=== PATIENT | female | born 1950 | race Caucasian/White ===

== ENCOUNTER → 2016-10-20 | Day surgery (SDC) | payer OTHER, BC ==
[2016-10-13 15:34] VITALS: Ht 167.6 cm; Wt 88.6 kg
[~2016-10-20] VITALS: Ht 167.6 cm; Wt 88.6 kg
[~2016-10-20] MED LIST: ASPI81TA28 PO; ATROPINE SULFATE 0.1 MG/ML 5ML SYR IV PRN; BIOT1CAP8 PO; BUPIVACAINE/EPINEPHRINE 0.25% 1:200,000 30 ML VIAL ONE; CEFAZOLIN 2000 MG/60 ML D5W IV SCH; CHOL1000 PO; DEXAMETHASONE SOD INJ 4 MG/ML VIAL ONE; EpHEDrine SULFATE INJ 50 MG/ML AMP IV PRN; EpINEphrine INJ 1MG/ML AMP 1 MG/ML AMP ONE; FENTANYL CITRATE INJ 50 MCG/1 ML 2 ML VIAL IV PRN; FENTANYL CITRATE INJ 50 MCG/1 ML 2 ML VIAL ONE; FLUMAZENIL 0.1 MG/1 ML 10 ML VIAL IV PRN; HYDR2TAB2 PO; HYDROmorphone INJ 1 MG/ML SYR ONE; HYDROmorphone INJ 2 MG/ML SYR/VIAL IV PRN; KETO10TA PO; KETOROLAC TROMETHAMINE 15 MG/ML VIAL IV. PRN; KETOROLAC TROMETHAMINE 30 MG/ML VIAL ONE; LABETALOL HCL IV 5 MG/ML 20ML IV PRN; LACTATED RINGER'S 1000ML 1,000 ML IV SCH; LIDOCAINE HCL 1% MPF 2 ML VIAL ONE; LIDOCAINE HCL 2% 2 ML VIAL (20MG/ML) ONE; LOSA50TA6 PO; LOTE0.5S OPB; MELO7.5T5 PO; MIDAZOLAM HCL 1 MG/ML 2ML VIAL ONE; MULT-506 PO; NALOXONE HCL 0.4 MG/1 ML VIAL/CARP IV PRN; OMEP20TA PO; ONDANSETRON INJ 2 MG/ML 2 ML VIAL IV PRN; ONDANSETRON INJ 2 MG/ML 2 ML VIAL ONE; OXYC-57 PO; OXYCODONE/ACETAMINOPHEN 5-325 TAB PO PRN; PROMETHAZINE HCL INJ 12.5 MG in SODIUM CHLORIDE 0.9% 50ML 50 ML IV PRN; PROPOFOL IV EMULSION 10 MG/ML 20 ML VIAL IV ONE; ROPIVACAINE 0.5% 5 MG/ML 30 ML VIAL ONE; SODIUM CHLORIDE 0.9% 1000ML 1,000 ML IV SCH; SODIUM CHLORIDE 0.9% INJ 10 ML VIAL ONE; SUCCINYLCHOLINE CHLORIDE 20 MG/ML 10 ML VIAL IV ONE
--- NOTE | 2016-10-20 10:20 | History & Physical Bridge - [place] ---
H&P Re-Evaluation Bridge Note: I have examined the patient, reviewed the History & Physical and in the interval since the performance of the History & Physical I have noted the following changes of clinical significance: No changes noted
--- NOTE | 2016-10-20 11:37 | OPERATIVE REPORT ---
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 POSTOPERATIVE DIAGNOSIS: Same. PROCEDURES: Right shoulder diagnostic arthroscopy with limited debridement, acromioplasty, distal clavicle resection and biceps tenotomy. SURGEON: Dr. Danny Howe. COUTIERIER: Christopher Banks PA-C, whose assistance was necessary for positioning the arm and helping with instrumentation. ANESTHESIA: General with a right interscalene nerve block. COMPLICATIONS: None. CONDITION: Stable to PACU. INDICATIONS: Marycruz is a very pleasant 66-year-old female who presented to my office with chronic right shoulder pain. MRI and clinical examination were diagnostic for severe external impingement and AC joint arthritis. After failing conservative treatment, she elected to undergo arthroscopy. On 10/20/2016 she arrived at [facility] for the above procedure. She was seen in the preoperative holding area and the operative extremity was identified and signed. She was given a preoperative antibiotic and a right interscalene nerve block. She was taken back to the operating room, laid on the table in supine position and put under general anesthesia. She was then put into the beachchair position. The right shoulder was prepped and draped in a sterile fashion. Time-out was done and the patient and operative extremity was properly identified. A scope was introduced in the posterior portal. Diagnostic arthroscopy showed grade 2 and 3 chondral changes throughout the humeral head and grade 1 chondral changes throughout the glenoid. The biceps tendon was right on the dorsal aspect. The supraspinatus, infraspinatus, teres minor and subscapularis were checked and intact. There was some fraying of the anterior labrum. An anterior portal was made. A shaver was used to do a limited debridement of the intraarticular structures and the biceps tendon was arthroscopically tenotomized. The scope was then put into the subacromial space. A lateral portal was made. A shaver was used to do a complete subacromial and subdeltoid bursectomy. The bursal side of the rotator cuff was examined extensively without evidence of tear. A cautery was then used to tease the coracoacromial ligament off the undersurface of the acromion and a 5-0 mrak was used to complete an acromioplasty of a Bigliani type 3 acromion. A shaver was used to remove any excess debris. The bursal side of the rotator cuff was examined again without evidence of tear. Attention was turned to the distal clavicle. Through an anterior portal, a shaver and ablator were used to skeletonize the distal clavicle. A 5-0 mark was then used to resect the distal 7 mm from the clavicle. Complete resection was checked under direct visualization. Multiple pictures were taken. Arthroscopic instruments were removed from the shoulder. Portal sites were closed with 3-0 nylon. She was then placed in a soft dressing and a regular arm sling. She was then extubated, transferred to a litter and taken to the postanesthesia care unit in stable condition. She tolerated the procedure well. I attest to the content of the Intraoperative Record and any orders documented therein. Any exceptio ns are noted below.
--- NOTE | 2016-10-20 11:39 | Discharge Instructions-SurgCtr ---
Discharge Instructions Visit Reason for Visit: Right Shoulder Impingement Syndrome, Jt Pain Discharge Discharge Diagnosis / Problem: SAME ABOVE Discharge Goals Goal(s): Decrease discomfort, Improve function Medications Stopped Medications Name(s): Mobic stopped. Last dose 10/11/16. Aspirin stopped Last dose10/15/16. Restart Stopped Medication(s): MAY RESTART MOBIC WHEN YOU ARE DONE TAKING THE TORADOL TAKE TORADOL EVERY 8 HOURS WITH FOOD. DO NOT TAKE NEEDED MAY START ASA ONCE TORADOL IS FINISHED Activity Recommendations Lifting Limitations: until after follow-up appointment Exercise/Sports Limitations: until after follow-up appointment Driving or Machine Use: NO DRIVING WHILE IN THE SLING OR ON PAIN MEDICAITON Anesthesia . Post Anesthesia Instructions: If you have had General Anesthesia or IV Sedation: * Do not drive today. * Resume driving when surgeon permits. * Do not make important decisions or sign legal documents today. * Call surgeon for: 1. Temperature elevations greater than 101 degrees F. 2. Uncontrollable pain. 3. Excessive bleeding. 4. Persistent nausea and vomiting. 5. Medication intolerance (nausea, vomiting or rash). * For nausea and vomiting use only clear liquids such as: tea, soda, bouillon until nausea subsides, then gradually increase diet as tolerated. * If you have any concerns or questions, call your surgeon's office. If physician is unavailable and it is an emergency, call 911 or go to the nearest emergency room. . Instructions / Follow-Up Instructions / Follow-Up MEDICATIONS: * Resume previous medications unless instructed otherwise by your surgeon. * Always take pain medication on a full stomach or with food to avoid upset stomach. * Do not drink alcohol or drive while taking narcotics. * Ibuprofen or Tylenol may be taken if narcotic not needed. SPECIAL CARE INSTRUCTIONS: __ None _X_ Keep extremity elevated and iced x 48 hours; apply ice 20-30 minutes 8-10 times/day. May remove at night. __ Sling __24 hrs/day __ Remove at night _X_ Shoulder Immobilizer (WEAR NEEDED FOR COMFORT) _X_ 24 hrs/day __ Remove at night _X_ Dressing __ Maintain until seen in office, may shower with plastic over site _X_ Remove dressings in 24-48 hours and then may shower _X_ Cover incisions with band-aids after showering __ Do not remove steri-strips Call physician if chills or temperature rises above 102 degrees or pain unrelieved by prescribed pain medications at . . Diet Recommendations Home Diet: no limitations Fluid Restriction: None Procedures Procedures Performed: Right Shoulder Arthroscopy, Acromioplasty, Distal Clavicle Resection, Biceps Tenotomy Pending Studies Studies pending at discharge: no Work Instructions Return To Work: after follow-up Lifting Limitations: NO LIFTING WITH RIGHT ARM Medical Emergencies . Who to Call and When: Medical Emergencies: If at any time you feel your situation is an emergency, please call 911 immediately. . Non-Emergent Contact Non-Emergency issues call your: Primary Care Provider Call Non-Emergent contact if: you have a fever, temperature is above 101.5 . . "Provider Documentation" section prepared by Barber Banks.
[2016-10-20] MEDS: HYDROmorphone INJ 0.5 MG/0.5 ML SYR IV PRN ×3 (11:47→12:31)
--- NOTE | 2016-10-20 13:38 | Anesthesia Progress Nt - [facility] ---
Anesthesia Post Op Note Date & Time Oct 20, 2016 at 13:37 Vital Signs Pain Intensity: 4 Vital Signs Past 12 Hours Date Time Temp Pulse Resp B/P Pulse Ox O2 Delivery O2 Flow Rate FiO2 10/20/16 13:05 97 7 93 10/20/16 13:05 97 7 10/20/16 13:03 137/75 10/20/16 13:00 94 10 10/20/16 13:00 96 10 99 10/20/16 12:58 149/74 10/20/16 12:55 95 12 10/20/16 12:55 94 12 99 10/20/16 12:53 162/86 10/20/16 12:50 93 8 10/20/16 12:50 93 8 98 10/20/16 12:48 141/73 10/20/16 12:45 92 11 10/20/16 12:45 91 11 99 10/20/16 12:43 147/71 10/20/16 12:40 93 16 93 10/20/16 12:40 95 16 10/20/16 12:39 123/78 10/20/16 12:35 94 12 10/20/16 12:35 94 12 99 10/20/16 12:33 137/71 10/20/16 12:30 90 6 10/20/16 12:30 87 6 100 10/20/16 12:28 135/71 10/20/16 12:25 94 18 100 10/20/16 12:25 94 18 10/20/16 12:23 148/69 10/20/16 12:20 86 6 100 10/20/16 12:20 87 6 10/20/16 12:18 145/76 10/20/16 12:15 89 10 10/20/16 12:15 89 10 100 10/20/16 12:13 148/74 10/20/16 12:10 91 12 100 10/20/16 12:10 92 12 10/20/16 12:08 144/79 10/20/16 12:05 90 7 100 10/20/16 12:05 90 7 10/20/16 12:03 145/68 10/20/16 12:00 91 10 100 10/20/16 12:00 91 10 10/20/16 11:58 153/69 10/20/16 11:55 90 10 10/20/16 11:55 90 10 100 10/20/16 11:53 144/77 10/20/16 11:50 93 12 100 17 11:50 92 12 17 11:48 153/76 17 11:45 90 10 17 11:45 89 10 100 10/20/16 11:43 146/82 10/20/16 11:40 91 12 10/20/16 11:40 90 12 100 10/20/16 11:38 138/74 10/20/16 11:35 97 16 100 10/20/16 11:35 97 16 10/20/16 11:33 143/71 10/20/16 11:30 100 99 10/20/16 11:30 100 10/20/16 11:28 159/79 10/20/16 11:27 36.4 102 16 141/94 98 Diffusion Mask 6 10/20/16 10:20 0 10/20/16 10:19 144/79 10/20/16 10:15 93 10/20/16 10:15 93 10 96 10/20/16 10:14 94 14 96 10/20/16 10:14 98 10/20/16 10:13 122/98 10/20/16 10:09 97 10/20/16 10:09 98 12 148/76 97 10/20/16 10:08 99 10/20/16 10:08 99 13 96 10/20/16 10:03 93 10/20/16 10:03 95 14 154/99 100 10/20/16 09:58 99 10/20/16 09:58 100 22 151/107 100 10/20/16 09:53 90 16 151/92 100 10/20/16 09:53 93 10/20/16 09:52 144/86 10/20/16 09:48 91 12 10/20/16 09:48 91 12 96 10/20/16 09:43 92 14 94 10/20/16 09:43 86 14 10/20/16 09:38 92 20 96 10/20/16 09:38 91 20 10/20/16 09:33 99 14 10/20/16 09:33 99 14 95 10/20/16 09:28 93 23 95 10/20/16 09:28 92 23 10/20/16 09:23 90 16 10/20/16 09:23 89 16 96 10/20/16 09:07 36.5 100 18 162/84 99 Room Air Notes Mental Status: alert / awake / arousable, participated in evaluation Pt Amnestic to Procedure: Yes Nausea / Vomiting: adequately controlled Pain: adequately controlled Airway Patency, RR, SpO2: stable & adequate BP & HR: stable & adequate Hydration State: stable & adequate Anesthetic Complications: no major complications apparent Shortly before anticipated discharge it was noted that her sp02 was bouncing around between 88-92 on room air. I auscultated and noted decreased breath sounds at her right base associated with some crackles and bowel sounds. I obtained a chest xray which showed an elevated right hemidiaphragm with no other pathology. She was discharged with an incentive spirometer and instructions how to use it. Her sp02 at time of discharge was 90.
[2016-10-20 14:00] VITALS: TEMP 36.4
--- NOTE | 2016-10-20 14:38 | [facility] Post Operative Brief Note ---
Immediate Operative Summary Operative Date Oct 20, 2016. Pre-Operative Diagnosis Right Shoulder Impingement Syndrome, AC Joint Arthritis Post-Operative Diagnosis Same Procedure(s) Performed Right Shoulder Arthroscopy, Acromioplasty, Distal Clavicle Resection, Biceps Tenotomy Surgeon Dr. Howe Auditing Control Clerk Surgeon(s) Juan Banks PA-C Estimated Blood Loss 5 ml Findings as above Specimens None Complication(s) None Disposition Recovery Room / PACU
[2016-10-20 15:08] VITALS: BP 128/80; PULSE 104; O2SAT 92
--- NOTE | 2016-10-20 15:09 | DIAGNOSTIC IMAGING REPORT ---
SURGICNTR CHEST 1 VIEW PORTABL CLINICAL HISTORY: shortness of breath COMPARISON STUDY: None FINDINGS: There is moderate elevation right hemidiaphragm. The heart is at the upper limits of normal in size. There is no focal pulmonary consolidation. No pleural effusions are evident.[ There is no overt failure. There are mild right basilar atelectatic changes. IMPRESSION: Moderate elevation of the right hemidiaphragmatic contour. No evidence of focal pulmonary consolidation. No evidence of overt failure. Electronically signed by: Deshaun Higgins M.D. 10/20/2016 2:53 PM Dictated Date/Time: 10/20/2016 2:52 PM
== END | disposition home or self-care (01) ==
LOC: X.SURG 08:58
PROVIDERS: ATTEND Orthopaedic Surgery
DX: M75.41 Impingement syndrome of right shoulder (principal); M19.019 Primary osteoarthritis, unspecified shoulder; I10 Essential (primary) hypertension; Z98.890 Other specified postprocedural states; Z90.49 Acquired absence of other specified parts of digestive tract; Z83.518 Family history of other specified eye disorder; Z82.49 Family history of ischemic heart disease and other diseases of the circulatory system